=== PATIENT | female | born 1980 | race American Indian/Alaskan Native ===

== ENCOUNTER 2018-06-08 05:55 | Day surgery (SDC) | payer OTHER ==
[~2018-06-08 05:55] MED LIST: LEXAPRO5 MG; MACRODANTIN100 MG PO; PEPCID20 MG PO; SYNTHROID50 MCG; ZOFRAN4 MG SL
== END 2018-06-08 12:15 | disposition home or self-care (01) ==
LOC: CIR.AMB 05:55
DX: O34.32 Maternal care for cervical incompetence, second trimester (principal); Z3A.14 14 weeks gestation of pregnancy

== ENCOUNTER 2018-08-10 11:02 | Outpatient (CLI) | payer OTHER | END 2018-08-10 12:12 | disposition home or self-care (01) | LOC: NST 11:02 | DX: Z34.82 Encounter for supervision of other normal pregnancy, second trimester (principal) ==

== ENCOUNTER 2018-08-17 09:01 | Outpatient (CLI) | payer OTHER | END 2018-08-17 10:12 | disposition home or self-care (01) | LOC: NST 09:01 | DX: Z34.82 Encounter for supervision of other normal pregnancy, second trimester (principal) ==

== ENCOUNTER 2018-08-24 09:30 | Outpatient (CLI) | payer OTHER | END 2018-08-24 10:19 | disposition home or self-care (01) | LOC: NST 09:30 | DX: Z34.82 Encounter for supervision of other normal pregnancy, second trimester (principal) ==

== ENCOUNTER 2018-08-31 00:25 | Inpatient (IN) | payer OTHER ==
[~2018-08-31] VITALS: Ht 172.7 cm; Wt 64.9 kg
[2018-08-31] MEDS ORDERED: SYNTHROID75 MCG PO (03:46)
[2018-08-31] MEDS ORDERED: NIFE60TA3 PO (03:47)
== END 2018-09-06 09:34 | disposition home or self-care (01) | DRG 831 ==
LOC: LDR 00:25 → OB/GYN 00:25 → LDR 02:11 → OB/GYN 18:24
PROVIDERS: ADMIT Obstetrics & Gynecology Maternal & Fetal Medicine
PROC: BY4FZZZ Ultrasonography of Third Trimester, Single Fetus (ICD-10-PCS; principal; 2018-08-31)
PROC: BU4CZZZ Ultrasonography of Uterus and Ovaries (ICD-10-PCS; 2018-08-31)
PROC: 4A1HXCZ Monitoring of Products of Conception, Cardiac Rate, External Approach (ICD-10-PCS; 2018-08-31)
DX: O60.02 Preterm labor without delivery, second trimester (principal); O34.32 Maternal care for cervical incompetence, second trimester; Z34.82 Encounter for supervision of other normal pregnancy, second trimester

== ENCOUNTER 2018-09-07 12:53 | Outpatient (CLI) | payer OTHER ==
[~2018-09-07 12:53] MED LIST changes: +NIFE60TA3 PO; +SYNTHROID75 MCG PO
== END 2018-09-07 13:26 | disposition home or self-care (01) ==
LOC: NST 12:53
DX: Z34.82 Encounter for supervision of other normal pregnancy, second trimester (principal)

== ENCOUNTER 2018-09-14 12:54 | Outpatient (CLI) | payer OTHER | END 2018-09-14 13:29 | disposition home or self-care (01) | LOC: NST 12:54 | DX: Z34.83 Encounter for supervision of other normal pregnancy, third trimester (principal) ==

== ENCOUNTER 2018-09-21 09:59 | Outpatient (CLI) | payer OTHER | END 2018-09-21 11:20 | disposition home or self-care (01) | LOC: NST 09:59 | DX: Z34.83 Encounter for supervision of other normal pregnancy, third trimester (principal) ==

== ENCOUNTER 2018-09-28 09:19 | Outpatient (CLI) | payer OTHER | END 2018-09-28 10:21 | disposition home or self-care (01) | LOC: NST 09:19 | DX: Z34.83 Encounter for supervision of other normal pregnancy, third trimester (principal) ==

== ENCOUNTER 2018-10-05 09:26 | Outpatient (CLI) | payer OTHER | END 2018-10-05 10:28 | disposition home or self-care (01) | LOC: NST 09:26 | DX: Z34.83 Encounter for supervision of other normal pregnancy, third trimester (principal) ==

== ENCOUNTER 2018-10-12 09:32 | Outpatient (CLI) | payer OTHER | END 2018-10-12 10:31 | disposition home or self-care (01) | LOC: NST 09:32 | DX: Z34.83 Encounter for supervision of other normal pregnancy, third trimester (principal) ==

== ENCOUNTER 2018-10-19 09:41 | Outpatient (CLI) | payer OTHER | END 2018-10-19 10:45 | disposition home or self-care (01) | LOC: NST 09:41 | DX: Z34.83 Encounter for supervision of other normal pregnancy, third trimester (principal) ==

== ENCOUNTER 2018-11-02 09:22 | Outpatient (CLI) | payer OTHER | END 2018-11-02 10:29 | disposition home or self-care (01) | LOC: NST 09:22 | DX: Z34.83 Encounter for supervision of other normal pregnancy, third trimester (principal) ==

== ENCOUNTER 2018-11-14 13:45 | Inpatient (IN) | payer OTHER ==
[~2018-11-14] VITALS: Ht 172.7 cm; Wt 77.1 kg
== END 2018-11-30 10:29 | disposition home or self-care (01) | DRG 807 ==
LOC: LDR 11-28 02:56 → OB/GYN 11-28 02:56 → LDR 11-28 03:44 → OB/GYN 11-28 04:50 → LDR 11-28 06:03 → OB/GYN 11-28 10:56
PROVIDERS: ADMIT Obstetrics & Gynecology Maternal & Fetal Medicine
PROC: 10E0XZZ Delivery of Products of Conception, External Approach (ICD-10-PCS; principal; 2018-11-28)
PROC: 0KQM0ZZ Repair Perineum Muscle, Open Approach (ICD-10-PCS; 2018-11-28)
PROC: 3E033VJ Introduction of Other Hormone into Peripheral Vein, Percutaneous Approach (ICD-10-PCS; 2018-11-28)
PROC: 0W8NXZZ Division of Female Perineum, External Approach (ICD-10-PCS; 2018-11-28)
PROC: 4A1HXCZ Monitoring of Products of Conception, Cardiac Rate, External Approach (ICD-10-PCS; 2018-11-28)
DX: O70.1 Second degree perineal laceration during delivery (principal); Z37.0 Single live birth; Z3A.39 39 weeks gestation of pregnancy

== ENCOUNTER 2018-11-22 12:59 | Outpatient (CLI) | payer OTHER | END 2018-11-22 14:20 | disposition home or self-care (01) | LOC: NST 12:59 | DX: Z34.83 Encounter for supervision of other normal pregnancy, third trimester (principal) ==

== ENCOUNTER 2023-05-20 09:20 | Outpatient (CLI) | payer OTHER | END 2023-05-20 09:33 | disposition home or self-care (01) | LOC: SONOGRAMA 09:20 | PROVIDERS: ATTEND Physical Medicine & Rehabilitation | DX: M25.522 Pain in left elbow (principal) ==

== ENCOUNTER 2024-03-09 08:21 | Outpatient (CLI) | payer OTHER | END 2024-03-09 08:31 | disposition home or self-care (01) | LOC: SONOGRAMA 08:21 | PROVIDERS: ATTEND General Practice | DX: E06.3 Autoimmune thyroiditis (principal); E03.8 Other specified hypothyroidism; E04.0 Nontoxic diffuse goiter; E55.9 Vitamin D deficiency, unspecified; E56.8 Deficiency of other vitamins; I11.9 Hypertensive heart disease without heart failure; E78.2 Mixed hyperlipidemia ==

== ENCOUNTER 2024-08-01 14:08 | Outpatient (CLI) | payer OTHER | END 2024-08-01 14:19 | disposition home or self-care (01) | LOC: RAD 14:08 | PROVIDERS: ATTEND Physical Medicine & Rehabilitation | DX: M54.2 Cervicalgia (principal) ==